=== PATIENT | male | born 1955 | race American Indian/Alaskan Native ===

== ENCOUNTER → 2018-02-18 | Outpatient (CLI) | payer OTHER ==
[~2018-02-18] MED LIST: ACET325 PO; ALLO300 PO; AMOCLA875 PO; ASPI81CH PO; AZIT250 PO; Advil Pm Liqui1 EACH PO; Antivert25 MG PO; CEPH500 PO; CLIN300 PO; CYCL10 PO; FAMO20 PO; HYDACE5 PO; IBUP600 PO; KETO10 PO; Mobic15 MG PO; Mobic7.5 MG PO; NAPR500 PO; Norco 5-325 Ta1 EACH PO; Norco 7.5-3251 EACH PO; OXYACE5T PO; PROC5 PO; Prilosec20 MG PO; Robaxin-750750 MG PO; SULTRIDS PO; SULTRISS PO; TAMS.4ER PO; Ultram50 MG PO
== END ==
LOC: LAB SHORT 07:47 → PLD 07:47
DX: L91.8 Other hypertrophic disorders of the skin (principal)
CPT/HCPCS: 88304; 88305

== ENCOUNTER 2019-07-17 22:51 | Inpatient (IN) | payer OTHER ==
[~2019-07-17] VITALS: Ht 188 cm; Wt 116.0 kg
[~2019-07-17 22:51] MED LIST changes: +Pyridium100 MG PO
[2019-07-18 00:20] LABS: Source, Urine Clean Catch
[2019-07-18 00:28] LABS: Blood, Urine 2+ (Neg); Glucose Qualitative, Urine 3+ (Neg); Ketones, Urine Neg (Neg); Leukocyte Esterase, Urine 1+ (Neg); Nitrite, Urine Pos (Neg); Protein, Urine 3+ (Neg); Specific Gravity, Urine 1.025 (1.003-1.022); Urobilinogen, Urine 3+ (Normal)
[2019-07-18 00:29] LABS: Appearance, Urine Hazy (Clear); Bilirubin, Urine 2+ (Neg); Color, Urine Orange (P-Yellow)
[2019-07-18 00:39] LABS: Amorphous Light ({null, 0-Heavy}); Bacteria Few /hpf; Mucus Mod ({null, 0-Heavy}); Red Blood Cells, Urine 0-2 /hpf (0-2); Squamous Epithelial Cells Not Seen /hpf (Few); White Blood Cells, Urine 50-100 /hpf (0-5)
[2019-07-18 00:51] LABS: BASOPHILS ABSOLUTE AUTO 0.04 K/mm3 (0.00-0.23); BASOPHILS PERCENT AUTO 0 % (0-2); EOSINOPHILS ABSOLUTE AUTO 0.15 K/mm3 (0.00-0.68); EOSINOPHILS PERCENT AUTO 1 % (0-6); Hematocrit 43.5 % (37.0-53.0); Hemoglobin 14.9 g/dL (13.5-17.5); IMMATURE GRAN ABSOLUTE AUTO 0.06 K/mm3 (0.00-0.10); IMMATURE GRAN PERCENT AUTO 0 % (0-1); LYMPHOCYTES ABSOLUTE AUTO 2.03 K/mm3 (0.84-5.20); LYMPHOCYTES PERCENT AUTO 14 % (21-46); MONOCYTES ABSOLUTE AUTO 1.19 K/mm3 (0.16-1.47); MONOCYTES PERCENT AUTO 8 % (4-13); Mean Corpuscular HGB 29.6 pg (26.0-34.0); Mean Corpuscular HGB Conc 34.3 g/dL (31.5-36.5); Mean Corpuscular Volume 86 fL (80-100); Mean Platelet Volume 10.7 fL (9.1-12.4); NEUTROPHILS PERCENT AUTO 76 % (41-73); Platelet Count 312 K/mm3 (150-400); RDW Coefficient Variation 12.2 % (11.7-14.2); RDW Standard Deviation 38.5 fL (35.1-46.3); Red Blood Cell Count 5.04 M/mm3 (4.30-5.90); White Blood Cell Count 14.47 K/mm3 (4.00-11.30)
[2019-07-18 01:08] LABS: Alanine Aminotransfer (ALT/SGP 17 U/L (12-78); Albumin, Blood 3.3 g/dL (3.4-5.0); Albumin/Globulin Ratio 0.8 (0.8-1.8); Alk Phos 68 U/L (50-136); Anion Gap 8 mmol/L (6-16); Aspartate Aminotrans (AST/SGOT 6 U/L (12-37); Bilirubin, Total 1.4 mg/dL (0.1-1.0); Blood Urea Nitrogen 14 mg/dL (8-24); Bun/Creatinine Ratio 18.2 (12.0-20.0); CO2, Blood 26 mmol/L (21-32); Chloride, Blood 104 mmol/L (98-108); Creatinine, Blood 0.77 mg/dL (0.60-1.20); Glomerular Filtration Rate >60 (60-); Glucose, Blood 210 mg/dL (70-99); Potassium, Blood 3.8 mmol/L (3.5-5.5); Sodium, Blood 138 mmol/L (136-145); Total Protein, Blood 7.3 g/dL (6.4-8.2)
[2019-07-18 05:48] LABS: BASOPHILS ABSOLUTE AUTO 0.04 K/mm3 (0.00-0.23); BASOPHILS PERCENT AUTO 0 % (0-2); EOSINOPHILS ABSOLUTE AUTO 0.17 K/mm3 (0.00-0.68); EOSINOPHILS PERCENT AUTO 2 % (0-6); Hematocrit 41.6 % (37.0-53.0); IMMATURE GRAN ABSOLUTE AUTO 0.03 K/mm3 (0.00-0.10); IMMATURE GRAN PERCENT AUTO 0 % (0-1); LYMPHOCYTES ABSOLUTE AUTO 2.49 K/mm3 (0.84-5.20); LYMPHOCYTES PERCENT AUTO 21 % (21-46); MONOCYTES ABSOLUTE AUTO 1.09 K/mm3 (0.16-1.47); MONOCYTES PERCENT AUTO 9 % (4-13); Mean Corpuscular HGB 29.4 pg (26.0-34.0); Mean Corpuscular HGB Conc 33.7 g/dL (31.5-36.5); Mean Corpuscular Volume 87 fL (80-100); Mean Platelet Volume 10.6 fL (9.1-12.4); NEUTROPHILS ABSOLUTE AUTO 7.87 K/mm3 (1.96-9.15); NEUTROPHILS PERCENT AUTO 67 % (41-73); Platelet Count 304 K/mm3 (150-400); RDW Coefficient Variation 12.3 % (11.7-14.2); RDW Standard Deviation 39.3 fL (35.1-46.3); Red Blood Cell Count 4.77 M/mm3 (4.30-5.90); White Blood Cell Count 11.69 K/mm3 (4.00-11.30)
--- NOTE | 2019-07-18 16:50 | NUR ---
SHIFT SUMMARY PATIENT MEDICATED X 1 FOR PAINFUL URINATION. DENIES NAUSEA AND SHORTNESS OF BREATH. UP INDEPENDENT IN ROOM. GIRLFRIEND AT BEDSIDE. CALL LIGHT IN REACH.
--- NOTE | 2019-07-19 05:48 | NUR ---
SHIFT SUMMARY PATIENT COMPLAINED OF RIGHT FLANK PAIN AT BEGINING OF SHIFT AND WAS TREATED WITH PRESCRIBED PAIN MEDICATION. PATIENT SLEPT THROUGH MOST OF AUTOMATIC OUTSOLE CUTTER. PATIENT SO AT BEDSIDE. PATIENT UP AD MEREDITH IN ROOM.
[2019-07-19 09:18] LABS: BASOPHILS ABSOLUTE AUTO 0.02 K/mm3 (0.00-0.23); BASOPHILS PERCENT AUTO 0 % (0-2); EOSINOPHILS ABSOLUTE AUTO 0.22 K/mm3 (0.00-0.68); EOSINOPHILS PERCENT AUTO 2 % (0-6); Hematocrit 39.2 % (37.0-53.0); Hemoglobin 13.3 g/dL (13.5-17.5); IMMATURE GRAN ABSOLUTE AUTO 0.05 K/mm3 (0.00-0.10); IMMATURE GRAN PERCENT AUTO 0 % (0-1); LYMPHOCYTES ABSOLUTE AUTO 1.66 K/mm3 (0.84-5.20); LYMPHOCYTES PERCENT AUTO 15 % (21-46); MONOCYTES PERCENT AUTO 9 % (4-13); Mean Corpuscular HGB 29.6 pg (26.0-34.0); Mean Corpuscular HGB Conc 33.9 g/dL (31.5-36.5); Mean Corpuscular Volume 87 fL (80-100); Mean Platelet Volume 10.5 fL (9.1-12.4); NEUTROPHILS ABSOLUTE AUTO 8.46 K/mm3 (1.96-9.15); NEUTROPHILS PERCENT AUTO 74 % (41-73); Platelet Count 279 K/mm3 (150-400); RDW Coefficient Variation 12.1 % (11.7-14.2); RDW Standard Deviation 38.8 fL (35.1-46.3); White Blood Cell Count 11.41 K/mm3 (4.00-11.30)
[2019-07-19] MEDS ORDERED: CEFP200 PO (13:18)
[2019-07-19] MEDS ORDERED: ACET325 PO (13:18)
[2019-07-19] MEDS ORDERED: MIRALAX17 GM PO (13:19)
[2019-07-19] MEDS ORDERED: DOCU100 PO (13:19)
[2019-07-19] MEDS ORDERED: TAMS.4ER PO (13:20)
[2019-07-19] MEDS ORDERED: METF500 PO (13:24)
[2019-07-19] MEDS ORDERED: TRAM50 PO (13:24)
[2019-07-19] MEDS ORDERED: ASCO500 PO (13:24)
--- NOTE | 2019-07-19 14:15 | NUR ---
1400 PT DISCHARGED HOME VIA PERSONAL VEHICLE. PT SELF AMBULATED TO FACILITY ENTRANCE PER HIS REQUEST. NEW RX FAXED TO [facility]. IV REMOVED. D/C PAPERWORK REVIEWED WITH PT AND COPY PROVIDED. PT REFUSED LUNCH TIME INSULIN AND WAS RELUCTANT TO RECIEVE ANY VERBAL EDUCATION AT ALL. NO OTHER CONCNERNS.
[2019-07-21 01:06] LABS: CHLAMYDIA TRACHOMATIS, NAA Negative (Negative); NEISSERIA GONORRHOEAE, NAA Negative (Negative)
== END 2019-07-19 13:55 | disposition home or self-care (01) | DRG 872 ==
LOC: ER 22:51 → MEDS 07-18 05:07
PROVIDERS: Emergency Medicine; Family Medicine; ADMIT Hospitalist
DX: A41.9 Sepsis, unspecified organism (principal); N39.0 Urinary tract infection, site not specified; N20.1 Calculus of ureter; I48.91 Unspecified atrial fibrillation; E11.9 Type 2 diabetes mellitus without complications; E80.4 Gilbert syndrome; M54.40 Lumbago with sciatica, unspecified side; E66.01 Morbid (severe) obesity due to excess calories; Z88.5 Allergy status to narcotic agent; Z88.8 Allergy status to other drugs, medicaments and biological substances; Z87.891 Personal history of nicotine dependence; Z79.82 Long term (current) use of aspirin; Z79.899 Other long term (current) drug therapy; Z68.37 Body mass index [BMI] 37.0-37.9, adult
CPT/HCPCS: 36415; 74177; 80053; 81001; 82947; 83605; 85025; 87086; 87491; 87591; 96361; 96365-59; 96372-59; 96375; 99283; 99285-25; J0500; J0696; J1650; J1885; J7030; Q9967

== ENCOUNTER → 2019-11-08 | Outpatient (CLI) | payer OTHER ==
[~2019-11-08] MED LIST changes: +ASCO500 PO; +CEFP200 PO; +DOCU100 PO; +METF500 PO; +MIRALAX17 GM PO; +TRAM50 PO
== END | disposition home or self-care (01) ==
LOC: LAB 13:52 → LAB SHORT 13:52
DX: C80.1 Malignant (primary) neoplasm, unspecified (principal); E11.65 Type 2 diabetes mellitus with hyperglycemia; D48.0 Neoplasm of uncertain behavior of bone and articular cartilage; M25.572 Pain in left ankle and joints of left foot; R60.0 Localized edema
CPT/HCPCS: 87070; 87075; 87102; 87205; 88305; 88311

== ENCOUNTER → 2021-01-04 | Outpatient (CLI) | payer OTHER ==
[2021-01-06 00:10] LABS: CHLAMYDIA TRACHOMATIS, NAA Negative (Negative)
== END | disposition home or self-care (01) ==
LOC: PLD 08:30 → LAB SHORT 08:30
PROVIDERS: Nurse Practitioner Family
DX: N50.819 Testicular pain, unspecified (principal); R30.0 Dysuria; R36.9 Urethral discharge, unspecified
CPT/HCPCS: 87086; 87491; 87591

== ENCOUNTER → 2021-10-03 | Outpatient (CLI) | payer OTHER | END | disposition home or self-care (01) | LOC: LAB 14:49 → LAB SHORT 14:49 | DX: D18.01 Hemangioma of skin and subcutaneous tissue (principal) | CPT/HCPCS: 88305 ==